=== PATIENT | male | born 1970 ===

== ENCOUNTER 2022-03-06 05:54 | Day surgery (SDC) | payer BC, OTHER ==
[~2022-03-06 05:54] MED LIST: Dextrose 5%-0.45% NaCl 1,000 ML IV SCH; Sodium Chloride 0.9% 10 ML Syringe FLUSH PRN; Sodium Chloride 0.9% 10 ML Syringe FLUSH SCH
[2022-03-06] MEDS ORDERED: fentaNYL 100 MCG/2 ML SDV IV ONE ×3 (05:55→07:09)
[2022-03-06] MEDS ORDERED: Midazolam 1 MG/ML 2 ML SDV IV ONE ×5 (05:55→07:15)
[2022-03-06] MEDS ORDERED: Midazolam 1 MG/ML 2 ML SDV ONE (06:11)
[2022-03-06] MEDS ORDERED: fentaNYL 100 MCG/2 ML SDV ONE (06:11)
== END 2022-03-06 08:35 | disposition home or self-care (01) ==
LOC: DL.ENDO 05:54
PROVIDERS: ATTEND Internal Medicine Gastroenterology
DX: Z12.11 Encounter for screening for malignant neoplasm of colon (principal); E66.09 Other obesity due to excess calories; E03.9 Hypothyroidism, unspecified; E78.5 Hyperlipidemia, unspecified; R73.9 Hyperglycemia, unspecified; N18.9 Chronic kidney disease, unspecified; Z98.890 Other specified postprocedural states; Z88.0 Allergy status to penicillin; Z68.31 Body mass index [BMI] 31.0-31.9, adult
CPT/HCPCS: 45378; J2250; J3010; J7042